=== PATIENT | male | born 1980 | race Caucasian/White ===

== ENCOUNTER 2018-01-13 19:04 | Emergency (ER) | payer SELFPAY ==
[~2018-01-13] VITALS: Ht 172.7 cm; Wt 80.0 kg
[2018-01-13 19:47] VITALS: BP 121/82
== END 2018-01-13 19:48 | disposition home or self-care (01) ==
LOC: EMS 19:06
DX: Z02.89 Encounter for other administrative examinations (principal); S00.83XA Contusion of other part of head, initial encounter; F10.129 Alcohol abuse with intoxication, unspecified; F31.9 Bipolar disorder, unspecified; F15.90 Other stimulant use, unspecified, uncomplicated; F17.210 Nicotine dependence, cigarettes, uncomplicated; Y90.9 Presence of alcohol in blood, level not specified; Z88.1 Allergy status to other antibiotic agents; W22.8XXA Striking against or struck by other objects, initial encounter; Y93.89 Activity, other specified; Y92.89 Other specified places as the place of occurrence of the external cause; Y99.8 Other external cause status
CPT/HCPCS: 99283